=== PATIENT | female | born 1995 | race Caucasian/White ===

== ENCOUNTER 2020-06-11 05:56 | Inpatient (IN) ==
[2020-06-11] MEDS ORDERED: ONDANSETRON 4 MG/2 ML VIAL IV PRN (06:11)
[2020-06-11] MEDS ORDERED: MEPERIDINE 50 MG/1 ML VIAL IV PRN (06:11)
[2020-06-11] MEDS ORDERED: BUTORPHANOL 2 MG/ML VIAL IV PRN (06:11)
[2020-06-11] MEDS: LACTATED RINGERS 1,000 ML IV SCH ×2 (06:33→15:49)
[2020-06-11 07:08] LABS: Alanine Aminotransferase 23 U/L (13-56); Albumin 2.8 G/DL (3.4-5.0); Alkaline Phosphatase 201 U/L (45-117); Aspartate Amino Transferase 20 U/L (0-37); Bilirubin,Total < 0.39 MG/DL (0.2-1.0); Blood Urea Nitrogen 6 MG/DL (7-18); Calcium 9.1 MG/DL (8.5-10.1); Estimated Glom Filtration Rate 122 ML/MIN; Glucose 91 MG/DL (74-106); Osmolality,Calculated 272.7 MOS/KG (273-304); Total Protein 7.3 G/DL (6.4-8.3)
[2020-06-11 07:12] LABS: Basophils # 0.1 10*3/uL (0.0-0.2); Basophils % 0.6 % (0.0-0.8); Eosinophils # 0.2 10*3/uL (0.0-0.87); Eosinophils % 2.2 % (0.00-10.9); Hemoglobin 11.4 GM/DL (12.0-16.0); Immature Granulocytes % 0.8 %; Immature Granulocytes Absolute 0.09 #; Lymphocytes % 18.1 % (21.3-54.2); Mean Corpuscular HGB Conc 31.7 GM/DL (32-36); Mean Corpuscular Volume 92.5 FL (87-102); Mean Platelet Volume 9.6 FL (9.6-12.0); Monocytes % 8.3 % (1.7-12.7); Platelet Count 279 T/CUMM (130-400); Red Blood Count 3.89 MC/CUMM (3.8-5.5); Red Cell Distribution Width 13.5 % (9.3-17.3); White Blood Count 11.1 T/CUMM (4-12)
[2020-06-11] MEDS: OXYTOCIN/LR 20 UNIT/1,000 ML BAG IV SCH (07:14)
[2020-06-11] MEDS ORDERED: LACTATED RINGERS 1,000 ML IV ONE (10:56)
[2020-06-11] MEDS ORDERED: FAMOTIDINE 20 MG/2 ML VIAL IV ONE (10:56)
[2020-06-11] MEDS ORDERED: CITRIC ACID/SODIUM CITRATE 30 ML UDCUP PO ONE (10:56)
[2020-06-11] MEDS ORDERED: diphenhydrAMINE 50 MG/1 ML VIAL IV PRN ×2 (10:57)
[2020-06-11] MEDS ORDERED: hydrOXYzine HCL 25 MG/1 ML VIAL IM PRN (10:57)
[2020-06-11] MEDS ORDERED: NALOXONE 0.4 MG/ML VIAL IV PRN (10:57)
[2020-06-11] MEDS ORDERED: PROMETHAZINE 25 MG/1 ML VIAL IM ONE (10:57)
[2020-06-11] MEDS ORDERED: ePHEDrine 50 MG/ML VIAL IV PRN (10:57)
[2020-06-11] MEDS: fentaNYL 2 MCG/ROPIV 0.2% EPID 100 ML EPIDURAL SCH ×2 (15:40→23:33)
[2020-06-11 17:51] LABS: Apearance,Urine CLEAR (Clear); Bilirubin,Urine Negative (Negative); Blood, Urine Small mg/dL (Negative); Glucose,Urine (UA) Negative (Negative); Ketones,Urine 20 mg/dL (Negative); Nitrite,Urine Negative (Negative); Protein,Urine Negative; Urine Color Colorless (Yellow); Urine Specific Gravity 1.003 (1.001-1.035); Urine Urobilinogen < 2.0 EU/DL (0.2-1.0)
[2020-06-11] MEDS ORDERED: TRANEXAMIC ACID 1,000 MG/10 ML VIAL ONE (22:16)
[2020-06-11] MEDS ORDERED: miSOPROStoL 200 MCG TABLET ONE (22:16)
[2020-06-11] MEDS ORDERED: METHYLERGONOVINE 0.2 MG/1 ML AMP ONE (22:17)
[2020-06-11] MEDS ORDERED: CARBOPROST TROMETHAMINE 250 MCG/ML AMP IM ONE (22:17)
[2020-06-11] MEDS ORDERED: OXYTOCIN/LR 20 UNIT/1,000 ML BAG IV ONE (22:17)
[2020-06-12] MEDS: LACTATED RINGERS 1,000 ML IV SCH (00:08)
[2020-06-12] MEDS: OXYTOCIN/LR 20 UNIT/1,000 ML BAG IV SCH (03:28)
[2020-06-12 04:42] LABS: Cord Venous Blood HCO3 22.2 MMOL/L; Cord Venous Blood PCO2 43.1 MMHG; Cord Venous Blood PO2 27.8
[2020-06-12] MEDS ORDERED: OXYTOCIN/LR 20 UNIT/1,000 ML BAG IV ONE (05:19)
[2020-06-12] MEDS ORDERED: RHO(D) IMMUNE GLOBULIN 300 MCG SYRINGE IM ONE (05:19)
[2020-06-12] MEDS ORDERED: ONDANSETRON 4 MG/2 ML VIAL IV PRN (05:19)
[2020-06-12] MEDS ORDERED: LANOLIN 50% CREAM 0.3 OZ TUBE TOP PRN (05:19)
[2020-06-12] MEDS ORDERED: MEASLES/MUMPS/RUBELLA VACCINE 0.5 ML VIAL SUBCUT ONE (05:19)
[2020-06-12] MEDS ORDERED: HYDROCORTISONE 2.5% RECTAL CREAM 30 GM TUBE TOP PRN (05:19)
[2020-06-12] MEDS ORDERED: oxyCODONE/ACETAMINOPHEN 5-325 MG TABLET PO PRN ×2 (05:19)
[2020-06-12] MEDS ORDERED: BISACODYL 10 MG SUPP RECTAL PRN (05:19)
[2020-06-12] MEDS ORDERED: WITCH HAZEL PADS 100/JAR TOP PRN (05:19)
[2020-06-12] MEDS ORDERED: DIPH/TET/ACEL PERT BOOSTER VACCINE 0.5 ML VIAL IM ONE (05:19)
[2020-06-12] MEDS ORDERED: ACETAMINOPHEN 325 MG TABLET PO PRN (05:19)
[2020-06-12] MEDS ORDERED: BENZOCAINE 20%/MENTHOL 0.5% SPRAY 56 GM CAN TOP PRN (05:19)
[2020-06-12] MEDS: IBUPROFEN 800 MG TABLET PO PRN ×3 (06:42→19:56)
[2020-06-12] MEDS: DOCUSATE SODIUM 100 MG CAPSULE PO SCH ×2 (09:06→20:02)
[2020-06-12] MEDS ORDERED: PROMETHAZINE 25 MG/1 ML VIAL IM ONE (23:55)
[2020-06-13] MEDS: IBUPROFEN 800 MG TABLET PO PRN ×2 (02:45→09:29)
[2020-06-13 06:02] LABS: Basophils # 0.1 10*3/uL (0.0-0.2); Basophils % 0.4 % (0.0-0.8); Eosinophils # 0.2 10*3/uL (0.0-0.87); Eosinophils % 1.3 % (0.00-10.9); Hematocrit 28.1 VOL% (35.7-47.0); Immature Granulocytes % 0.8 %; Immature Granulocytes Absolute 0.14 #; Lymphocytes # 2.7 10*3/uL (1.4-4.0); Lymphocytes % 15.8 % (21.3-54.2); Mean Corpuscular HGB Conc 32.4 GM/DL (32-36); Mean Corpuscular Volume 92.4 FL (87-102); Mean Platelet Volume 10.2 FL (9.6-12.0); Monocytes % 6.2 % (1.7-12.7); Neutrophils % 75.5 % (38.7-73.9); Platelet Count 229 T/CUMM (130-400); Red Cell Distribution Width 13.8 % (9.3-17.3)
[2020-06-13 06:04] LABS: Hemoglobin 9.1 GM/DL (12.0-16.0); Red Blood Count 3.04 MC/CUMM (3.8-5.5); White Blood Count 16.8 T/CUMM (4-12)
[2020-06-13] MEDS: DOCUSATE SODIUM 100 MG CAPSULE PO SCH (09:29)
[2020-06-13 12:32] VITALS: BP 107/59
== END 2020-06-13 17:07 | disposition home or self-care (01) | DRG 768 ==
LOC: N.LD 05:56 → N.OB 06-12 07:45
PROVIDERS: ADMIT Obstetrics & Gynecology; ATTEND Obstetrics & Gynecology